=== PATIENT | female | born 1975 | race Two or more races ===

== ENCOUNTER 2021-03-10 17:57 | Emergency (ER) | payer OTHER ==
[~2021-03-10] VITALS: Ht 162.6 cm; Wt 78.5 kg
[2021-03-10] MEDS ORDERED: LOSARTAN POTASS50 MG PO (18:05)
[2021-03-10] MEDS ORDERED: PROAIR HFA8.5 GM IH (18:05)
[2021-03-11] MEDS ORDERED: HYDROXYCHLOROQ200 MG PO (08:41)
[2021-03-11] MEDS ORDERED: ULTRAM50 MG PO (08:41)
[2021-03-11] MEDS ORDERED: MYCOPHENOLATE500 M1 IV (08:42)
[2021-03-11] MEDS ORDERED: ACID REDUCER20 M1 (08:42)
== END 2021-03-10 20:47 | disposition left against medical advice (07) ==
LOC: ER 17:57
DX: R60.0 Localized edema (principal); I82.401 Acute embolism and thrombosis of unspecified deep veins of right lower extremity

== ENCOUNTER 2021-03-11 08:14 | Emergency (ER) | payer OTHER ==
[~2021-03-11] VITALS: Ht 152.4 cm; Wt 78.5 kg
[~2021-03-11 08:14] MED LIST: LOSARTAN POTASS50 MG PO; PROAIR HFA8.5 GM IH
[2021-03-11] MEDS ORDERED: ULTRAM50 MG PO (08:41)
[2021-03-11] MEDS ORDERED: HYDROXYCHLOROQ200 MG PO (08:41)
[2021-03-11] MEDS ORDERED: MYCOPHENOLATE500 M1 IV (08:42)
[2021-03-11] MEDS ORDERED: ACID REDUCER20 M1 (08:42)
== END 2021-03-11 14:01 | disposition home or self-care (01) ==
LOC: ER 08:14
DX: I87.2 Venous insufficiency (chronic) (peripheral) (principal); R60.0 Localized edema; M79.605 Pain in left leg; M79.604 Pain in right leg

== ENCOUNTER 2022-08-11 13:56 | Emergency (ER) | payer OTHER ==
[~2022-08-11] VITALS: Ht 152.4 cm; Wt 75.7 kg
[~2022-08-11 13:56] MED LIST changes: +ACID REDUCER20 M1; +HYDROXYCHLOROQ200 MG PO; +MYCOPHENOLATE500 M1 IV; +ULTRAM50 MG PO
[2022-08-11] MEDS ORDERED: VAZALORE81 MG PO (14:19)
[2022-08-11] MEDS ORDERED: BENLYSTA200 MG/1 M SUBCUTANEO (14:20)
[2022-08-11] MEDS ORDERED: KETO10TA2 PO (20:35)
[2022-08-11] MEDS ORDERED: NORFLEX100MG PO (20:35)
== END 2022-08-11 20:55 | disposition home or self-care (01) ==
LOC: ER 13:56
DX: S30.0XXA Contusion of lower back and pelvis, initial encounter (principal); S30.1XXA Contusion of abdominal wall, initial encounter; V43.52XA Car driver injured in collision with other type car in traffic accident, initial encounter; Y93.9 Activity, unspecified; Y92.413 State road as the place of occurrence of the external cause; Y99.9 Unspecified external cause status; I11.9 Hypertensive heart disease without heart failure; N19 Unspecified kidney failure; Z98.890 Other specified postprocedural states